=== PATIENT | female | born 2000 | race African-American/Black ===

== ENCOUNTER 2018-02-26 05:54 | Emergency (ER) | payer OTHER ==
[~2018-02-26] VITALS: Ht 170.2 cm; Wt 73.0 kg
[2018-02-26] MEDS ORDERED: KETOROLAC 30MG/ML VIAL IV STA (06:33)
[2018-02-26] MEDS ORDERED: SODIUM CHLORIDE 0.9% 1,000 ML IV ONE (06:33)
[2018-02-26] MEDS ORDERED: ONDANSETRON HCL 4MG/2ML INJ IV STA (06:33)
[2018-02-26] MEDS ORDERED: FAMOTIDINE 20MG/2ML VIAL IV ONE (06:45)
[2018-02-26 06:56] LABS: CHLORIDE 106 mEq/L (98-107)
[2018-02-26 06:58] LABS: BASOPHILS % 0.3 % (0.0-2.0); HEMATOCRIT. 36.3 % (36.0-48.0); HEMOGLOBIN. 12.2 g/dL (12.0-16.0); LYMPHOCYTES % 23.8 % (20.0-50.0); MEAN CORPUSCULAR VOLUME 89.3 fL (81.0-99.0); MEAN PLATELET VOLUME 9.7 fl (7.4-10.4); MONOCYTES % 11.4 % (2.0-8.0); NEUTROPHILS % 61.5 % (40.0-76.0); PLATELET 219 x1000/uL (130-400); RED BLOOD CELL COUNT 4.06 mill/uL (4.2-5.4); RED CELL DISTRIBUTION WIDTH 14.2 % (11.6-14.6)
[2018-02-26 07:10] LABS: CLARITY URINE TURBID (CLEAR); COLOR URINE YELLOW (YELLOW); KETONES URINE 2+ (NEGATIVE); LEUKOCYTE ESTERASE URINE NEGATIVE (NEGATIVE); NITRITE URINE POSITIVE (NEGATIVE); OCCULT BLOOD URINE NEGATIVE (NEGATIVE); PH URINE 5.5 (4.5-8.0); PROTEIN URINE NEGATIVE (NEGATIVE); SPECIFIC GRAVITY URINE 1.022 (1.005-1.030); UROBILINOGEN URINE 0.2 E.U./dL (0.2-1.0)
[2018-02-26] MEDS ORDERED: ONDANSETRON HCL 4MG/2ML INJ IV ONE (08:45)
[2018-02-26] MEDS ORDERED: NITROFURANTOIN 100MG M/M CAPSULE PO ONE (08:45)
[2018-02-26] MEDS ORDERED: MORPHINE SULFATE 2 MG/ML CPJ (NOT FOR IM USE) IV ONE (08:45)
[2018-02-26 12:47] VITALS: BP 123/86
== END 2018-02-26 12:47 | disposition home or self-care (01) ==
LOC: ER 05:54
DX: R10.84 Generalized abdominal pain (principal); N39.0 Urinary tract infection, site not specified; N76.0 Acute vaginitis; R11.2 Nausea with vomiting, unspecified; R19.7 Diarrhea, unspecified
CPT/HCPCS: 36415; 80053; 81003; 81025; 83690; 85025; 96361; 96374; 96375; 96376; 99285; J1885; J2270; J2405; J3490; J7030; Z7610

== ENCOUNTER 2019-02-05 00:13 | Emergency (ER) | payer OTHER ==
[~2019-02-05] VITALS: Ht 167.6 cm; Wt 82.0 kg
[2019-02-05] MEDS ORDERED: MORPHINE SULFATE 4 MG/ML CPJ (NOT FOR IM USE) IV STA (04:29)
[2019-02-05] MEDS ORDERED: ONDANSETRON HCL 4MG/2ML INJ IV STA (04:29)
[2019-02-05] MEDS ORDERED: FAMOTIDINE 20MG/2ML VIAL IV STA (04:29)
[2019-02-05 04:44] LABS: HEMOGLOBIN. 12.5 g/dL (12.0-16.0); MEAN CORPUSCULAR HEMOGLOBIN 30.2 pg (28.0-32.0); MEAN CORPUSCULAR VOLUME 89.3 fL (81.0-99.0); MEAN PLATELET VOLUME 9.8 fl (7.4-10.4); PLATELET 264 x1000/uL (130-400); RED BLOOD CELL COUNT 4.15 mill/uL (4.2-5.4)
[2019-02-05 04:53] LABS: CHLORIDE 104 mEq/L (98-107)
[2019-02-05 05:47] LABS: ATYPICAL LYMPHOCYTES 1; PLATELET ESTIMATE NORMAL
[2019-02-05] MEDS ORDERED: SODIUM CHLORIDE 0.9% 1,000 ML IV ONE (06:15)
[2019-02-05] MEDS ORDERED: ONDANSETRON HCL 4MG/2ML INJ IV ONE (06:45)
[2019-02-05 08:24] LABS: CLARITY URINE CLEAR (CLEAR); COLOR URINE YELLOW (YELLOW); KETONES URINE 1+ (NEGATIVE); LEUKOCYTE ESTERASE URINE NEGATIVE (NEGATIVE); NITRITE URINE NEGATIVE (NEGATIVE); OCCULT BLOOD URINE NEGATIVE (NEGATIVE); PH URINE 7.5 (4.5-8.0); PROTEIN URINE NEGATIVE (NEGATIVE); SPECIFIC GRAVITY URINE 1.019 (1.005-1.030); UROBILINOGEN URINE 0.2 E.U./dL (0.2-1.0)
[2019-02-05 08:42] LABS: *AMPHETAMINES SCREEN URINE NEGATIVE (NEGATIVE); *BARBITURATES SCREEN URINE NEGATIVE (NEGATIVE); *BENZODIAZEPINES SCREEN URINE NEGATIVE (NEGATIVE); *COCAINE SCREEN URINE NEGATIVE (NEGATIVE); METHADONE URINE SCREEN NEGATIVE (NEGATIVE)
[2019-02-05 08:43] LABS: CANNABINOID URINE SCREEN PRESUMTIVE POSITIVE (NEGATIVE); OPIATES URINE SCREEN PRESUMTIVE POSITIVE (NEGATIVE); PHENCYCLIDINE URINE SCREEN NEGATIVE (NEGATIVE)
[2019-02-05 09:00] VITALS: BP 122/76
== END 2019-02-05 09:02 | disposition home or self-care (01) ==
LOC: ER 00:13
DX: K52.9 Noninfective gastroenteritis and colitis, unspecified (principal); F12.90 Cannabis use, unspecified, uncomplicated
CPT/HCPCS: 36415; 80053; 80305; 81003; 81025; 83690; 85025; 96361; 96374; 96375; 96376; 99284; J2270; J2405; J3490; J7030

== ENCOUNTER 2021-12-05 06:48 | Emergency (ER) | payer OTHER ==
[~2021-12-05] VITALS: Ht 167.6 cm; Wt 75.0 kg
[2021-12-05] MEDS ORDERED: MAGNESIUM/ALUMINUM HYDROXIDE/SIMETHICONE 30ML UDC PO STA (06:56)
[2021-12-05] MEDS ORDERED: SODIUM CHLORIDE 0.9% 1,000 ML IV ONE (07:00)
[2021-12-05] MEDS ORDERED: METOCLOPRAMIDE HCL 10MG/2ML VIAL IV ONE (07:00)
[2021-12-05 08:52] LABS: CHLORIDE 104 mEq/L (98-107); HEMATOCRIT. 38.3 % (36.0-48.0); HEMOGLOBIN. 12.5 g/dL (12.0-16.0); MEAN CORPUSCULAR HEMOGLOBIN 29.1 pg (28.0-32.0); MEAN CORPUSCULAR VOLUME 89.1 fL (81.0-99.0); MEAN PLATELET VOLUME 9.2 fl (7.4-10.4); PLATELET 319 x1000/uL (130-400)
[2021-12-05 09:00] LABS: ETHANOL BLOOD < 10 mg/dL
[2021-12-05] MEDS ORDERED: POTASSIUM CHLORIDE 20MEQ TABLET SR PO ONE (09:15)
[2021-12-05 09:19] LABS: CLARITY URINE CLOUDY (CLEAR); COLOR URINE YELLOW (YELLOW); KETONES URINE 4+ (NEGATIVE); LEUKOCYTE ESTERASE URINE NEGATIVE (NEGATIVE); NITRITE URINE NEGATIVE (NEGATIVE); OCCULT BLOOD URINE NEGATIVE (NEGATIVE); PH URINE 5.5 (4.5-8.0); PROTEIN URINE 1+ (NEGATIVE); SPECIFIC GRAVITY URINE 1.031 (1.005-1.030)
[2021-12-05 09:24] LABS: HCG SCREEN NEGATIVE
[2021-12-05] MEDS ORDERED: ONDANSETRON HCL 4MG/2ML INJ IV STA (09:39)
[2021-12-05] MEDS ORDERED: KETOROLAC 30MG/ML VIAL IV STA (09:39)
[2021-12-05 09:47] LABS: *BARBITURATES SCREEN URINE NEGATIVE (NEGATIVE); *BENZODIAZEPINES SCREEN URINE NEGATIVE (NEGATIVE); *COCAINE SCREEN URINE NEGATIVE (NEGATIVE); METHADONE URINE SCREEN NEGATIVE (NEGATIVE); OPIATES URINE SCREEN NEGATIVE (NEGATIVE); PHENCYCLIDINE URINE SCREEN NEGATIVE (NEGATIVE)
[2021-12-05 09:54] LABS: *AMPHETAMINES SCREEN URINE PRESUMTIVE POSITIVE (NEGATIVE); CANNABINOID URINE SCREEN PRESUMTIVE POSITIVE (NEGATIVE)
[2021-12-05 10:00] LABS: PLATELET ESTIMATE NORMAL
[2021-12-05] MEDS ORDERED: ONDA4TAB50 MT (13:58)
[2021-12-05] MEDS ORDERED: NITR100C PO (15:11)
[2021-12-05] MEDS ORDERED: ONDANSETRON HCL 4MG/2ML INJ IV ONE (15:15)
[2021-12-05] MEDS ORDERED: KETOROLAC 30MG/ML VIAL IV ONE (15:15)
[2021-12-05 15:24] VITALS: BP 126/76
== END 2021-12-05 16:13 | disposition home or self-care (01) ==
LOC: ER 06:48
DX: R10.33 Periumbilical pain (principal); R11.2 Nausea with vomiting, unspecified; E87.6 Hypokalemia
CPT/HCPCS: 36415; 74176; 76830; 76856; 80053; 80305; 80320; 81003; 81025; 83690; 84703; 85025; 96374; 96375; 96376; 99285; J1885; J2405; J2765; J7030; G0480

== ENCOUNTER 2024-03-07 20:19 | Emergency (ER) | payer MEDICAID, OTHER ==
[~2024-03-07] VITALS: Ht 172.7 cm; Wt 75.0 kg
[~2024-03-07 20:19] MED LIST: NITR100C PO; ONDA4TAB50 MT
[2024-03-07 20:25] VITALS: O2SAT 98
[2024-03-07 21:17] LABS: HEMATOCRIT. 39.6 % (36.0-48.0); HEMOGLOBIN. 13.2 g/dL (12.0-16.0); MEAN CORPUSCULAR HEMOGLOBIN 30.5 pg (28.0-32.0); MEAN CORPUSCULAR HGB CONC 33.3 g/dL (31.0-37.0); MEAN CORPUSCULAR VOLUME 91.4 fL (81.0-99.0); MEAN PLATELET VOLUME 8.9 fl (7.4-10.4); PLATELET 242 x1000/uL (130-400); RED BLOOD CELL COUNT 4.34 mill/uL (4.2-5.4); RED CELL DISTRIBUTION WIDTH 13.6 % (11.6-14.6); WHITE BLOOD COUNT 11.4 x1000/uL (4.5-11.0)
[2024-03-07 21:18] LABS: DIFFERENTIAL COMMENT 1
[2024-03-07 21:22] LABS: CHLORIDE 106 mEq/L (98-107); POTASSIUM 3.1 mEq/L (3.5-5.1); SODIUM 141 mEq/L (136-145)
[2024-03-07 21:23] LABS: CALCIUM 10.2 mg/dL (8.7-10.4); CARBON DIOXIDE 23 mEq/L (21-32)
[2024-03-07 21:27] LABS: HCG SCREEN NEGATIVE
[2024-03-07 21:28] LABS: CREATININE 0.8 mg/dL (0.6-1.0); GLUCOSE 158 mg/dL (70-105); UREA NITROGEN BLOOD 10 mg/dL (9-23)
[2024-03-07 21:30] LABS: ALANINE AMINOTRANSFERASE 16 IU/L (10-49); ALBUMIN 4.8 g/dL (3.2-4.8); ASPARTATE AMINOTRANSFERASE 19 IU/L (<34); BILIRUBIN DIRECT 0.2 mg/dL (<=3.0); BILIRUBIN TOTAL 0.6 mg/dL (0.1-1.0); PROTEIN TOTAL 8.1 g/dL (6.0-8.3)
[2024-03-07] MEDS: SODIUM CHLORIDE 0.9% 1,000 ML IV ONE (21:35)
[2024-03-07] MEDS: DIPHENHYDRAMINE 50MG/ML VIAL IV ONE (21:35)
[2024-03-07] MEDS: DICYCLOMINE HCL 10MG/ML 2ML VIAL IM STA (21:35)
[2024-03-07] MEDS: FAMOTIDINE 20MG/2ML VIAL IV ONE (21:36)
[2024-03-07] MEDS: ONDANSETRON HCL 4MG/2ML INJ IV ONE (21:36)
[2024-03-07] MEDS: ACETAMINOPHEN 1000MG/100ML 100 ML IV ONE (21:36)
[2024-03-07 21:46] LABS: ETHANOL BLOOD < 10 mg/dL (<10)
[2024-03-07 22:03] LABS: PLATELET ESTIMATE NORMAL
[2024-03-07] MEDS: KETOROLAC 30MG/ML VIAL IV NR (22:50)
[2024-03-07] MEDS: POTASSIUM CHLORIDE 20MEQ/PACKET PO NR (22:54)
[2024-03-07] MEDS: CAPSAICIN 0.075% CREAM 57GM TOP PRN (23:16)
[2024-03-08] MEDS: METOCLOPRAMIDE HCL 10MG/2ML VIAL IV NR (01:13)
[2024-03-08] MEDS: SODIUM CHLORIDE 0.9% 1,000 ML IV NR (01:13)
[2024-03-08] MEDS: MORPHINE SULFATE 2 MG/ML INJ (NOT FOR IM USE) IV NR (01:19)
[2024-03-08 02:34] VITALS: BP 111/64; PULSE 92; RESP 16; TEMP 36.39180; O2SAT 98
== END 2024-03-08 02:55 | disposition short-term general hospital (02) ==
LOC: ER 20:19
DX: R10.13 Epigastric pain (principal); R11.2 Nausea with vomiting, unspecified; K21.9 Gastro-esophageal reflux disease without esophagitis; F12.10 Cannabis abuse, uncomplicated; Z87.19 Personal history of other diseases of the digestive system
CPT/HCPCS: 80076; 80048; 80320; 84703; 83690; 85025; 36415; 76705; 96365; 96372; 96375 ×2; 99285; 96361; J0500; J1200; J3490; J1885; J2405; J7030; J2765; J2270; Z7610; G0480; J0131